=== PATIENT | female | born 1970 | race Caucasian/White ===

== ENCOUNTER → 2017-05-21 | Outpatient (CLI) | payer OTHER | LOC: FIMAGING 08:56 | DX: I77.79 Dissection of other specified artery (principal) ==

== ENCOUNTER → 2017-09-30 | Outpatient (CLI) | payer OTHER | LOC: FIMAGING 10:30 | PROVIDERS: ATTEND Internal Medicine | DX: Z12.31 Encounter for screening mammogram for malignant neoplasm of breast (principal) | CPT/HCPCS: G0202 ==

== ENCOUNTER → 2018-10-13 | Outpatient (CLI) | payer BC | LOC: FIMAGING 10:20 | PROVIDERS: ATTEND Internal Medicine | DX: Z12.31 Encounter for screening mammogram for malignant neoplasm of breast (principal) ==